=== PATIENT | female | born 1995 | race Two or more races ===

== ENCOUNTER 2017-10-19 09:50 | Observation (INO) | payer OTHER ==
[2017-10-19] MEDS ORDERED: PREN-96 PO (10:46)
== END 2017-10-19 10:25 | disposition home or self-care (01) | DRG 782 ==
LOC: LDRP 09:50
PROVIDERS: ADMIT Obstetrics & Gynecology; ATTEND Obstetrics & Gynecology
DX: O26.852 Spotting complicating pregnancy, second trimester (principal); Z3A.26 26 weeks gestation of pregnancy
CPT/HCPCS: 59025; 81002; G0378

== ENCOUNTER 2018-09-28 20:02 | Emergency (ER) | payer BC, OTHER ==
[~2018-09-28] VITALS: Ht 170.2 cm; Wt 66.7 kg
[~2018-09-28 20:02] MED LIST: PREN-96 PO
[2018-09-28 20:23] VITALS: BP 113/73
[2018-09-28 20:59] LABS: Urine Bacteria NONE SEEN /hpf (None Seen); Urine Blood Negative /uL (Negative); Urine Mucus FEW (None Seen); Urine WBC 10 /hpf (0 - 5)
[2018-09-28 21:19] LABS: Basophils # (auto) 0 uL; Basophils % (auto) 0.1 % (0.0-2.0); Eosinophils # (auto) 0 uL; Eosinophils % (auto) 0.5 % (0.0-7.0); Hematocrit 42.9 % (36.0-46.0); Hemoglobin 14.9 g/dL (12.2-16.2); Lymphocytes # (auto) 0.8 uL; Lymphocytes % (auto) 11.9 % (10.0-50.0); Mean Corpuscular Hemoglobin 30.5 pg (28.0-32.0); Mean Corpuscular Hgb Conc. 34.7 g/dL (32.0-36.0); Mean Corpuscular Volume 87.7 fL (80.0-100.0); Monocytes # (auto) 0.5 uL; Monocytes % (auto) 7.5 % (0.0-12.0); Neutrophils # (auto) 5.5 uL; Platelet Count (auto) 167 10^3/uL (140-450); Red Blood Cells 4.88 10^6/uL (4.0-5.20); Red Cell Distribution Width 12.5 % (11.8-14.3); White Blood Cell 6.9 10^3/uL (4.4-10.8)
[2018-09-28 21:36] LABS: Albumin 4.1 g/dL (3.4-5.0); Calcium 8.9 mg/dL (8.5-10.1); Potassium 3.6 mmol/L (3.5-5.1)
[2018-09-28 21:38] LABS: BUN/Creatinine Ratio 13.5
[2018-09-28 21:41] LABS: Total Protein 7.3 g/dL (6.4-8.2)
== END 2018-09-28 22:58 | disposition left against medical advice (07) ==
LOC: ER 20:04
DX: O21.9 Vomiting of pregnancy, unspecified (principal); R19.7 Diarrhea, unspecified; Z3A.10 10 weeks gestation of pregnancy; Z53.29 Procedure and treatment not carried out because of patient's decision for other reasons
CPT/HCPCS: 36415; 80053; 81001; 82150; 83690; 84702; 85025